=== PATIENT | male | born 1950 | race Caucasian/White ===

== ENCOUNTER 2017-11-01 09:45 | Outpatient (CLI) ==
--- NOTE | 2017-11-01 10:37 | DI ---
Exam: Two x-rays of the abdomen. Comparison: 04/05/2013. Reason for exam: Bladder stone. FINDINGS: The bowel gas pattern is nonspecific and nonobstructive. Clips in the right upper quadran t are seen presumably from gallbladder removal. The imaged osseous structures demonstrate mild degen erative disease. No discrete calcific densities seen within the expected location of the patient's b ladder. Impression: Nonspecific, nonobstructive bowel gas pattern.
== END 2017-11-01 09:46 | disposition home or self-care (01) ==
LOC: RAD 09:45
PROVIDERS: ATTEND Urology
DX: N21.0 Calculus in bladder (principal); N40.1 Benign prostatic hyperplasia with lower urinary tract symptoms; N13.8 Other obstructive and reflux uropathy; N20.0 Calculus of kidney